=== PATIENT | male | born 1995 | race Two or more races ===

== ENCOUNTER 2020-12-09 20:19 | Emergency (ER) | payer SELFPAY ==
[~2020-12-09] VITALS: Ht 165.1 cm; Wt 64.0 kg
[2020-12-09 20:35] VITALS: BP 114/68
[2020-12-09] MEDS ORDERED: IBUP-2029 MT (20:59)
[2020-12-09] MEDS ORDERED: KETOROLAC 15MG/ML VIAL IV ONE (21:00)
== END 2020-12-09 22:38 | disposition home or self-care (01) ==
LOC: ER 20:19
DX: M25.511 Pain in right shoulder (principal); M54.2 Cervicalgia; Z79.899 Other long term (current) drug therapy; V49.88XA Car occupant (driver) (passenger) injured in other specified transport accidents, initial encounter; Y93.89 Activity, other specified; Y92.89 Other specified places as the place of occurrence of the external cause; Y99.8 Other external cause status
CPT/HCPCS: 73030; 99283; J1885